=== PATIENT | female | born 1990 | race Caucasian/White ===

== ENCOUNTER 2021-08-06 11:29 | Outpatient (CLI) | payer OTHER, SELFPAY ==
[2021-08-06 11:51] VITALS: BP 161/104; PULSE 113; RESP 18; TEMP 37.1; O2SAT 100; BMI 28.3
[2021-08-06] MEDS: 0.9% Saline Lock 10 ML Syringe IV (11:59)
[2021-08-06 12:48] VITALS: BP 158/93; PULSE 109; RESP 18; TEMP 37.3; O2SAT 100
[2021-08-06 13:48] VITALS: BP 143/76; PULSE 118; RESP 16; TEMP 37.2; O2SAT 100
== END 2021-08-06 13:50 | disposition home or self-care (01) ==
LOC: MS3OUT 11:29 → MS3 11:30
PROVIDERS: Referring Provider Nurse Practitioner Adult Health; Visit Provider Nurse Practitioner Adult Health
DX: Z23 Encounter for immunization (principal); U07.1 COVID-19
CPT/HCPCS: J7050; M0243; A4216; Q0244